=== PATIENT | male | born 1965 | race African-American/Black ===

== ENCOUNTER 2017-02-27 07:13 | Emergency (ER) | payer OTHER, MEDICARE ==
[~2017-02-27] VITALS: Ht 177.8 cm; Wt 176.9 kg
[~2017-02-27 07:13] MED LIST: AMLODIPINE BESY10 M1 PO; AMOXICILLIN500 MG PO; AMOXIL500 MG PO; AUGMENTIN 875 M1 TAB PO; AUGMENTIN 875-1 EACH PO; BACTRIM DS 8001 TAB PO; CIALIS5 MG PO; COUMADIN 5 MG TA5 MG PO; COUMADIN 7.5 M7.5 MG PO; CYCLOBENZAPRINE10 M1 PO; DIAZEPAM10 MG PO; ENDOCET 325 MG-1 TA1 PO; FLEXERIL10 MG PO; HYDRALAZINE HCL50 M1 PO; KEFLEX500 MG PO; MEDROL DOSEPAK1 PAC PO; METOPROLOL SUCC50 M2 PO; MUCUS ER600 MG PO; NORCO 325 MG-51 TAB PO; OXYCODONE HCL5 M1 PO; PERCOCET 325 MG1 TA2 PO; PRAVACHOL80 MG PO; TOPAMAX50 MG PO; TOPIRAMATE50 MG PO; VIBRAMYCIN 100100 MG PO; VICODIN 5-3001 EACH PO; VICODIN5-300 PO; VITAMIN D1000 IU PO; VITAMIN D32000 IU PO
--- NOTE | 2017-02-27 07:49 | ED GI/GU/ABDOMINAL COMPLAINT ---
History of Present Illness General Chief Complaint: General Adult Stated Complaint: RECTAL BLEEDING Source: patient Exam Limitations: no limitations Vital Signs & Intake/Output Vital Signs & Intake/Output Vital Signs Date Time Temp Pulse Resp B/P B/P Pulse O2 O2 Flow FiO2 Mean Ox Delivery Rate 02/27 0725 97.1 43 18 139/84 97 Room Air Allergies Coded Allergies: NO KNOWN ALLERGIES (01/17/16) Reconcile Medications Amlodipine Besylate 10 MG TABLET 1 TAB PO DAILY BP (Reported) Hydralazine HCl 50 MG TABLET 1 TAB PO TID BP (Reported) Metoprolol Succinate 50 MG TAB.ER.24H 1 TAB PO DAILY HEART (Reported) Oxycodone HCl/Acetaminophen (Percocet 5-325 MG Tablet) 5 MG-325 MG TABLET 1 TAB PO Q4-6 PRN PAIN Triage Note: PT STATES WHEN HE WOKE THIS AM HE HAD BLOOD IN HIS UNDERPANTS. PT STATES HE ONLY HAS ONE KIDNEY AND HE WANTED TO GET CHECKED OUT. PT STATES HE TAKE A LOT OF COUMADIN. PT REPORTS BLOOD WAS IN THE FRON OF HIS UNDERPANTS. Triage Nurses Notes Reviewed? yes Onset: Abrupt Duration: day(s): (1) Timing: single episode today Location: unknown Radiation: no radiation No Modifying Factors: none HPI: This is a 51-year-old male with history of [facility] aortic valve replacement on Coumadin who presents to the ER after noticing some dried blood in the front of his underwear this morning. He states he urinated with a normal stream and then went to have a bowel movement but as he sat down and placenta were down and noticed some dried blood which made him very concerned and came to the ER. Denies any abdominal pain nausea vomiting. Denies any blood in his stool. Last INR was checked last month. He follows up with Dr. Levin for cardiology denies any trauma. Denies any penile discharge. He has not been sectioned active in the past 1 month. Past History Travel History Traveled to [place] past 21 day No Medical History Any Pertinent Medical History? 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 No Review of Systems Review of Systems Constitutional: Denies: chills, fever. EENTM: Reports: no symptoms. Respiratory: Denies: cough, sputum production. Cardiovascular: Denies: chest pain. GI: Denies: abdominal pain, nausea, changes in stool. Genitourinary: Reports: no symptoms. Musculoskeletal: Reports: no symptoms. Skin: Reports: no symptoms. Neurological/Psychological: Reports: anxiety. Hematologic/Endocrine: Reports: bleeding. Immunologic/Allergic: Reports: no symptoms. All Other Systems: Reviewed and Negative Physical Exam Physical Exam General Appearance: well developed/nourished, alert, awake, anxious, mild distress, moderate distress, obese Head: atraumatic, normal appearance Eyes: Bilateral: normal appearance, PERRL, EOMI. Ears, Nose, Throat, Mouth: hearing grossly normal, moist mucous membrane Neck: normal inspection, supple, full range of motion Respiratory: normal breath sounds, chest non-tender, no respiratory distress Cardiovascular: regular rate/rhythm Peripheral Pulses: 2+ radial (R), 2+ radial (L) Gastrointestinal: soft, non-tender Rectal: normal inspection, normal rectal tone, guiac neg stool Male Genitals: normal genitalia Extremities: normal range of motion Neurologic/Psych: no motor/sensory deficits, awake, alert, oriented x 3 Skin: intact, normal color, warm/dry Core Measures ACS in differential dx? No Severe Sepsis Present: No Septic Shock Present: No Progress Differential Diagnosis: RECTAL FISSURE, HEMORRHOID, AVM, POLYP, COAGULOPATHY, HEMATURIA Plan of Care: Orders Procedure Date/time Status PROTHROMBIN TIME 02/27 733 Complete COMPREHENSIVE METABOLIC PANEL 02/27 733 Complete CBC WITHOUT DIFFERENTIAL 02/27 733 Complete URINALYSIS 02/28 732 Complete Laboratory Tests 02/27/17 0745: Anion Gap 10, Estimated GFR 54 L, BUN/Creatinine Ratio 10.7, Glucose 97, Calcium 8.9, Total Bilirubin 0.4, AST 28, ALT 41, Alkaline Phosphatase 65, Total Protein 7.1, Albumin 3.8, Globulin 3.3, Albumin/Globulin Ratio 1.2, PT 38.1 H, INR 3.68 H, CBC w Diff NO MAN DIFF REQ, RBC 4.66 L, MCV 85.6, MCH 27.8, RDW 16.1 H, MPV 11.4 H, Gran % 61.5, Lymphocytes % 28.1, Monocytes % 7.6, Eosinophils % 2.1, Basophils % 0.7, Absolute Granulocytes 4.1, Absolute Lymphocytes 1.8, Absolute Monocytes 0.5, Absolute Eosinophils 0.1, Absolute Basophils 0, PUBS MCHC 32.5 L 02/27/17 0715: Urine Color STRAW, Urine Clarity CLEAR, Urine pH 6.0, Ur Specific [place] 1.020, Urine Protein NEG, Urine Ketones NEG, Urine Nitrite NEG, Urine Bilirubin NEG, Urine Urobilinogen 0.2, Ur Leukocyte Esterase NEG, Ur Microscopic SEDIMENT EXAMINED, Urine RBC 3-5, Ur Epithelial Cells RARE, Urine Bacteria RARE H, Hyaline Casts RARE H, Urine Mucus FEW, Urine Hemoglobin TRACE-INTACT H, Urine Glucose NEG INR 3.68. Patient already took his dose for today but will hold his dose tomorrow. H&H within normal limits. Creatinine at baseline. He will monitor his urine and stool for any signs of bleeding and return if necessary. Otherwise he will follow-up with his outpatient INR testing and follow-up with Dr. Levin in the office. (VIVIANA GANNON,[facility]) Initial ED EKG: none Departure Departure Time of Disposition: 831 Disposition: HOME OR SELF CARE Condition: Stable Clinical Impression Primary Impression: Coagulopathy Referrals: PRASAD SNYDER (PCP/Family) Additional Instructions: Please hold your Coumadin dose tomorrow as you ready to daily as today. If you notice any leading from your urine or stool please return to the ER for evaluation. Otherwise follow-up with Dr. Levin in the office. Departure Forms: Customer Survey General Discharge Information
[2017-02-27 08:02] LABS: ABSOLUTE BASOPHIL COUNT 0 /CUMM (0.0-0.2); ABSOLUTE EOSINOPHIL COUNT 0.1 /CUMM (0.0-0.7); ABSOLUTE GRANULOCYTE CT 4.1 /CUMM (1.4-6.5); ABSOLUTE LYMPH COUNT 1.8 /CUMM (1.2-3.4); ABSOLUTE MONOCYTE COUNT 0.5 /CUMM (0.10-0.60); BASOPHIL % 0.7 % (0.0-2.0); EOSINOPHIL % 2.1 % (0-5); GRANULOCYTE % 61.5 % (42.2-75.2); HEMATOCRIT 39.9 % (42-52); MEAN CORPUSCULAR HGB 27.8 PG (27.0-31.0); MEAN CORPUSCULAR HGB CONC 32.5 G/DL (33.0-37.0); MEAN CORPUSCULAR VOLUME 85.6 FL (80.0-94.0); MEAN PLATELET VOLUME 11.4 FL (7.4-10.4); PLATELET COUNT 163 /CUMM (130-400); RBC DISTRIBUTION WIDTH 16.1 % (11.5-14.5); RED BLOOD CELL CT 4.66 /CUMM (4.70-6.10); WHITE BLOOD CELL COUNT 6.6 /CUMM (4.8-10.8)
[2017-02-27 08:11] LABS: PT 38.1 SEC (9.4-12.5)
[2017-02-27 08:43] VITALS: BP 130/80
== END 2017-02-27 08:43 ==
LOC: ERH 07:13
PROVIDERS: Emergency Medicine
DX: D68.9 Coagulation defect, unspecified (principal)
CPT/HCPCS: 81001

== ENCOUNTER 2017-03-08 21:21 | Emergency (ER) | payer OTHER, MEDICARE ==
[~2017-03-08] VITALS: Ht 177.8 cm; Wt 176.9 kg
--- NOTE | 2017-03-08 22:12 | ED GI/GU/ABDOMINAL COMPLAINT ---
History of Present Illness General Chief Complaint: General Adult Stated Complaint: PT HAS BLOOD IN HIS URINE Source: patient, old records Exam Limitations: no limitations Vital Signs & Intake/Output Vital Signs & Intake/Output Vital Signs Date Time Temp Pulse Resp B/P B/P Pulse O2 O2 Flow FiO2 Mean Ox Delivery Rate 03/08 2131 96.0 52 18 147/82 97 Room Air Allergies Coded Allergies: NO KNOWN ALLERGIES (01/17/16) Reconcile Medications Amlodipine Besylate 10 MG TABLET 1 TAB PO DAILY BP (Reported) Hydralazine HCl 50 MG TABLET 1 TAB PO TID BP (Reported) Metoprolol Succinate 50 MG TAB.ER.24H 1 TAB PO DAILY HEART (Reported) Oxycodone HCl/Acetaminophen (Percocet 5-325 MG Tablet) 5 MG-325 MG TABLET 1 TAB PO Q4-6 PRN PAIN Triage Note: PT TO TRIAGE WITH C/O LEFT FLANK PAIN AND HEMATURIA x3DAYS. NO OTHER SYMPTOMS. VSS. PT WAS BORN WITH ONE KIDNEY, PT NOT SURE LEFT OR RIGHT. Triage Nurses Notes Reviewed? yes Onset: Abrupt Duration: day(s): (2) Timing: multiple episodes today Quality/Severity: mild Location: left flank Radiation: no radiation No Modifying Factors: none Associated Symptoms: HEMATURIA HPI: This is a 51-year-old male with history of artificial valve on Coumadin, morbid obesity high blood pressure who presents to the ER with chief complaint of left flank pain for the past couple of days. Today he noticed some gross blood in his urine. Denies any fever or chills. Denies any trauma. No history of previous kidney stones. Today he had his INR done which was 2.2. He got a call from the cancer center and they told him to take an extra dose of Coumadin tonight. Past History Travel History Traveled to [place] past 21 day No Medical History Any Pertinent Medical History? 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 No Review of Systems Review of Systems Constitutional: Denies: chills, fever. EENTM: Reports: no symptoms. Respiratory: Reports: no symptoms. Cardiovascular: Reports: no symptoms. GI: Reports: see HPI. Genitourinary: Reports: hematuria. Denies: frequency, hesitation. Musculoskeletal: Reports: back pain. Skin: Reports: no symptoms. Neurological/Psychological: Reports: no symptoms. Hematologic/Endocrine: Reports: bleeding. Denies: bruising, polyuria, polydipsia. Immunologic/Allergic: Denies: splenectomy. All Other Systems: Reviewed and Negative Physical Exam Physical Exam General Appearance: well developed/nourished, alert, awake, anxious, mild distress, obese Head: atraumatic, normal appearance Eyes: Bilateral: normal appearance, PERRL, EOMI. Ears, Nose, Throat, Mouth: hearing grossly normal, moist mucous membrane Neck: normal inspection Respiratory: normal breath sounds, chest non-tender, no respiratory distress Cardiovascular: regular rate/rhythm Gastrointestinal: soft, non-tender, OBESE, FIRM ON REBOUND/GUARDING Male Genitals: normal genitalia Back: CVA tenderness (L) Neurologic/Psych: no motor/sensory deficits, awake, alert, oriented x 3 Skin: intact, normal color, warm/dry Core Measures ACS in differential dx? No Severe Sepsis Present: No Septic Shock Present: No Progress Differential Diagnosis: ureterolithiasis, UTI/pyelo Plan of Care: Orders Procedure Date/time Status COMPREHENSIVE METABOLIC PANEL 03/08 2214 Complete CBC WITHOUT DIFFERENTIAL 03/08 2214 Complete URINALYSIS 03/08 2136 Complete Current Medications Sig/Lenny Start time Last Medication Dose Stop Time Status Admin Ibuprofen 800 MG ONCE ONE 03/085 UNVr (Motrin) 03/08 2346 Laboratory Tests 03/08/17 2242: Urinalysis LIGHT H, Urine Color YEL, Urine Clarity CLEAR, Urine pH 6.5, Ur Specific [place] 1.015, Urine Protein TRACE H, Urine Ketones NEG, Urine Nitrite NEG, Urine Bilirubin NEG, Urine Urobilinogen 0.2, Ur Leukocyte Esterase NEG, Ur Microscopic SEDIMENT EXAMINED, Urine RBC 50-75 H, Urine WBC 1-3 H, Urine Hemoglobin LARGE H, Urine Glucose NEG 03/08/172213: Anion Gap 8, Estimated GFR 50 L, BUN/Creatinine Ratio 10.0, Glucose 85, Calcium 9.1, Total Bilirubin 0.4, AST 30, ALT 44, Alkaline Phosphatase 64, Total Protein 7.3, Albumin 4.0, Globulin 3.3, Albumin/Globulin Ratio 1.2, CBC w Diff NO MAN DIFF REQ, RBC 4.66 L, MCV 84.6, MCH 28.0, RDW 16.3 H, MPV 11.3 H, Gran % 60.8 , Lymphocytes % 28.2, Monocytes % 7.7, Eosinophils % 2.1, Basophils % 1.2, Absolute Granulocytes 6.0, Absolute Lymphocytes 2.8, Absolute Monocytes 0.8 H, Absolute Eosinophils 0.2, Absolute Basophils 0.1, PUBS MCHC 33.1 LABS, CT, URINALYSIS ORDERED. (VIVIANA GANNON,MIKE) Diagnostic Imaging: Viewed by Me: CT Scan. Discussed w/RAD: CT Scan. Radiology Impression: PATIENT: IGOR YOUNG PRESENT AGE: 51 PATIENT ACCOUNT NO: [id number] : 66 LOCATION: [facility] ORDERING PHYSICIAN: MIKE MICHELLE MD SERVICE DATE: 03/08/17 EXAM TYPE: CAT - CT ABD & PELVIS W/O IV CONTRAS EXAMINATION: CT ABDOMEN AND PELVIS WITHOUT CONTRAST CLINICAL INFORMATION: Left flank pain. Hematuria. COMPARISON: None TECHNIQUE: Multidetector volumetric imaging was performed from the superior aspect of the liver through the pubic symphysis. Sagittal and coronal reformatted images were obtained on the technologist's workstation. DLP: 1605 mGy-cm FINDINGS: LUNG BASES: The lung bases are clear. The heart appears enlarged. LIVER, GALLBLADDER, AND BILIARY TREE: The liver is normal in attenuation. The left lobe of the liver appears atrophic with compensatory prominence of the right lobe.. No focal hepatic lesion or biliary ductal dilatation is present. The gallbladder is unremarkable with no evidence of radiopaque gallstones, gallbladder wall thickening, or obvious pericholecystic inflammatory changes. PANCREAS: Unremarkable. SPLEEN: Unremarkable. ADRENAL GLANDS: Unremarkable. KIDNEYS AND URETERS: There is no right-sided kidney visualized. The left kidney is prominent, likely compensatory. There is no hydronephrosis. There is a 0.2 cm left midpole calculus, 16 cm from the posterior axillary line. 2.7 cm left midpole renal cyst. BLADDER: Unremarkable. GASTROINTESTINAL TRACT: The stomach and small bowel are unremarkable. No dilated loops of bowel or evidence of obstruction. No colonic wall thickening or inflammatory change. No free air or free fluid. ABDOMINAL WALL: No significant hernia is appreciated. LYMPH NODES: Normal. VASCULAR: Unremarkable. PELVIC VISCERA: The prostate and seminal vesicles are unremarkable. OSSEOUS STRUCTURES: No acute or suspicious osseous abnormality. Mild degenerative changes in the spine. IMPRESSION: Solitary left kidney. No hydronephrosis. Tiny left midpole renal calculus. The heart appears enlarged. DICTATED BY: DEE OCONNOR MD DATE/TIME DICTATED:03/08/172308 STRATEGIC COMMUNICATIONS MANAGER:MIKE DATE/TIME TRANSCRIBED:03/08/172308 CONFIDENTIAL, DO NOT COPY WITHOUT APPROPRIATE AUTHORIZATION. <Electronically signed in Other Vendor System> SIGNED BY: DEE OCONNOR MD 03/08/17 2318 Initial ED EKG: none Departure Departure Time of Disposition: 2342 Disposition: HOME OR SELF CARE Condition: Stable Clinical Impression Primary Impression: Hematuria Referrals: STEWART GANNON,PRASAD REBOLLEDO (PCP/Family) Additional Instructions: Follow up with your doctor and with the urologist listed. Return as needed. Departure Forms: Customer Survey General Discharge Information Prescriptions: Current Visit Scripts Oxycodone HCl/Acetaminophen (Percocet 5-325 MG Tablet) 1 TAB PO Q4-6 PRN PAIN #10 TAB
[2017-03-08 22:52] LABS: ABSOLUTE BASOPHIL COUNT 0.1 /CUMM (0.0-0.2); ABSOLUTE EOSINOPHIL COUNT 0.2 /CUMM (0.0-0.7); ABSOLUTE LYMPH COUNT 2.8 /CUMM (1.2-3.4); ABSOLUTE MONOCYTE COUNT 0.8 /CUMM (0.10-0.60); BASOPHIL % 1.2 % (0.0-2.0); EOSINOPHIL % 2.1 % (0-5); GRANULOCYTE % 60.8 % (42.2-75.2); HEMATOCRIT 39.5 % (42-52); MEAN CORPUSCULAR HGB CONC 33.1 G/DL (33.0-37.0); MEAN CORPUSCULAR VOLUME 84.6 FL (80.0-94.0); MEAN PLATELET VOLUME 11.3 FL (7.4-10.4); PLATELET COUNT 182 /CUMM (130-400); RBC DISTRIBUTION WIDTH 16.3 % (11.5-14.5); RED BLOOD CELL CT 4.66 /CUMM (4.70-6.10); WHITE BLOOD CELL COUNT 9.8 /CUMM (4.8-10.8)
--- NOTE | 2017-03-08 23:18 | CT SCAN REPORT ---
EXAMINATION: CT ABDOMEN AND PELVIS WITHOUT CONTRAST CLINICAL INFORMATION: Left flank pain. Hematuria. COMPARISON: None TECHNIQUE: Multidetector volumetric imaging was performed from the superior aspect of the liver through the pubic symphysis. Sagittal and coronal reformatted images were obtained on the technologist's workstation. DLP: 1605 mGy-cm FINDINGS: LUNG BASES: The lung bases are clear. The heart appears enlarged. LIVER, GALLBLADDER, AND BILIARY TREE: The liver is normal in attenuation. The left lobe of the liver appears atrophic with compensatory prominence of the right lobe.. No focal hepatic lesion or biliary ductal dilatation is present. The gallbladder is unremarkable with no evidence of radiopaque gallstones, gallbladder wall thickening, or obvious pericholecystic inflammatory changes. PANCREAS: Unremarkable. SPLEEN: Unremarkable. ADRENAL GLANDS: Unremarkable. KIDNEYS AND URETERS: There is no right-sided kidney visualized. The left kidney is prominent, likely compensatory. There is no hydronephrosis. There is a 0.2 cm left midpole calculus, 16 cm from the posterior axillary line. 2.7 cm left midpole renal cyst. BLADDER: Unremarkable. GASTROINTESTINAL TRACT: The stomach and small bowel are unremarkable. No dilated loops of bowel or evidence of obstruction. No colonic wall thickening or inflammatory change. No free air or free fluid. ABDOMINAL WALL: No significant hernia is appreciated. LYMPH NODES: Normal. VASCULAR: Unremarkable. PELVIC VISCERA: The prostate and seminal vesicles are unremarkable. OSSEOUS STRUCTURES: No acute or suspicious osseous abnormality. Mild degenerative changes in the spine. IMPRESSION: Solitary left kidney. No hydronephrosis. Tiny left midpole renal calculus. The heart appears enlarged.
[2017-03-08] MEDS ORDERED: PERCOCET 5-3251 EACH PO (23:56)
[2017-03-09 00:03] VITALS: BP 145/84
== END 2017-03-09 00:03 ==
LOC: ERH 21:21
PROVIDERS: Emergency Medicine
DX: R31.9 Hematuria, unspecified (principal)
CPT/HCPCS: 74176; 81001